=== PATIENT | male | born 1990 | race Caucasian/White ===

== ENCOUNTER → 2019-06-03 14:11 | Outpatient (BNVA) | payer OTHER, SELFPAY | PROVIDERS: Family Provider Nurse Practitioner Family; PCP Nurse Practitioner Family; Visit Provider Nurse Practitioner | DX: R05 Cough (principal); J10.1 Influenza due to other identified influenza virus with other respiratory manifestations | CPT/HCPCS: 87804 ==

== ENCOUNTER → 2020-01-08 11:36 | Outpatient (BNVA) | payer OTHER, SELFPAY | PROVIDERS: Family Provider Nurse Practitioner Family; PCP Nurse Practitioner Family; Visit Provider Nurse Practitioner | DX: J02.9 Acute pharyngitis, unspecified (principal); B34.9 Viral infection, unspecified | CPT/HCPCS: 87071; 87400; 87880 ==

== ENCOUNTER 2023-06-30 07:37 | Outpatient (CLI) | payer OTHER, SELFPAY ==
--- NOTE | 2023-06-30 07:45 | US_ITS ---
WS: [id number] RIGHT UPPER QUADRANT ULTRASOUND HISTORY: RUQ PAIN COMPARISON: None available. Liver: 16.8 cm in length. Normal size liver and echogenicity. No bile duct dilatation or mass. Portal Vein: Normal hepatopetal flow with monophasic waveform. Gallbladder: Normally distended gallbladder with no stones or wall thickening. CBD: 0.4 cm Pancreas: Poorly visualized. Right kidney: 10.9 cm in length. Normal size and echogenicity. No hydronephrosis or mass. Aorta and IVC: Unremarkable abdominal aorta and IVC. No ascites. IMPRESSION: 1. Negative gallbladder. 2. Negative liver. 3. Pancreas poorly visualized.
== END 2023-06-30 07:38 | disposition home or self-care (01) ==
LOC: RAD 07:38
PROVIDERS: PCP Emergency Medicine Emergency Medical Services; Visit Provider Emergency Medicine Emergency Medical Services
DX: R10.11 Right upper quadrant pain (principal)
CPT/HCPCS: 76705

== ENCOUNTER → 2023-08-04 14:00 | Outpatient (BNVA) | payer OTHER, SELFPAY | PROVIDERS: PCP Emergency Medicine Emergency Medical Services; Referring Provider Emergency Medicine Emergency Medical Services; Visit Provider Student in an Organized Health Care Education/Training Program | DX: M25.532 Pain in left wrist (principal); S69.91XA Unspecified injury of right wrist, hand and finger(s), initial encounter; S63.591A Other specified sprain of right wrist, initial encounter; M25.539 Pain in unspecified wrist; X58.XXXA Exposure to other specified factors, initial encounter | CPT/HCPCS: 73110; 99203 ==

== ENCOUNTER 2023-08-25 07:43 | Outpatient (CLI) | payer OTHER, SELFPAY ==
--- NOTE | 2023-08-25 08:00 | MR_ITS ---
WS: [id number] EXAMINATION: MR wrist LT wo con* [id number] ORDER DATE: 08/25/2023 8:00 AM COMPARISON: None. HISTORY: LEFT wrist injury, rule out TFCC tear CONTRAST: None. TECHNIQUE: Axial T1, axial T2 fat sat, coronal T1, coronal proton density fat sat, coronal STIR, malathi nal 3D, and sagittal T1 performed. After contrast, axial T1 fat sat, coronal T1 fat sat, and sagittal T1 fat sat were performed. FINDINGS: Normal distal radius. Narrowing of the radiocarpal articulation. Distal ulna is normal appearance. C ystic degenerative changes involving the proximal and distal carpal row. Tiny chronic appearing avuls ed fracture involving the distal pole scaphoid measuring 3 mm. This appears well-corticated. This is no significant edema in the underlying scaphoid. Recommend correlation for scaphoid symptoms. This ap pears stable since radiograph 12/19/2022. Normal lunate. Normal scapholunate interval. Normal carpal tunnel. Tear involving the ulnar aspect of the TFCC at the ulnar styloid attachment with T2 signal abnormalit y. Associated high-grade tear of the extensor carpi ulnaris at the level of the ulnar styloid with te ndinopathy. Ulnar collateral ligament appears intact. Small amount of fluid in the DRUJ. Lunotriquetr al ligament appears intact. Slight ulnar negative variance with compensatory thickening of the fibrov ascular portion of the TFCC. MR/MR wrist LT wo con* [id number] IMPRESSION: 1. Tear involving the ulnar aspect of the TFCC at the ulnar styloid attachment with T2 signal abnormality. Associated signal normality extends into the exten sor carpi ulnaris with partial high-grade tear and tendinopathy. 2. Slight ulna minus variance with compensatory thickening of the TFCC. 3. Lunotriquetral ligament appears intact. 4. Tiny chronic appearing well-corticated avulsion tip of the scaphoid unchang ed since 12/19/2022. Recommend correlation for prior scaphoid injury or pain. No edema in the underlying scaphoid. 5. No other acute findings.
== END 2023-08-25 07:44 | disposition home or self-care (01) ==
LOC: RAD 07:43
PROVIDERS: PCP Emergency Medicine Emergency Medical Services; Visit Provider Student in an Organized Health Care Education/Training Program
DX: S63.591A Other specified sprain of right wrist, initial encounter (principal); M24.131 Other articular cartilage disorders, right wrist; S56.512A Strain of other extensor muscle, fascia and tendon at forearm level, left arm, initial encounter
CPT/HCPCS: 73221

== ENCOUNTER → 2023-09-01 08:40 | Outpatient (BNVA) | payer OTHER, SELFPAY | PROVIDERS: PCP Emergency Medicine Emergency Medical Services; Visit Provider Student in an Organized Health Care Education/Training Program | DX: S63.592A Other specified sprain of left wrist, initial encounter; X58.XXXA Exposure to other specified factors, initial encounter | CPT/HCPCS: 99213 ==